=== PATIENT | female | born 1965 | race Caucasian/White ===

== ENCOUNTER 2024-04-21 23:12 | Emergency (ER) | payer OTHER, SELFPAY ==
--- NOTE | 2024-04-21 23:08 | XRR_ITS ---
PROCEDURE INFORMATION: Exam: XR Chest Exam date and time: 04/21/2024 11:13 PM Age: 59 years old Clinical indication: Pain; Chest pressure; Additional info: Chest pain TECHNIQUE: Imaging protocol: Radiologic exam of the chest. Views: 1 view. COMPARISON: No relevant prior studies available. FINDINGS: Lungs: Unremarkable. No consolidation. Pleural spaces: Unremarkable. No pleural effusion. No pneumothorax. Heart/Mediastinum: Unremarkable. No cardiomegaly. Bones/joints: Unremarkable. XR/XR chest 1V portable [id number] IMPRESSION: No acute findings.
[2024-04-21 23:09] VITALS: BP 194/95; PULSE 97; RESP 16; TEMP 36.7; O2SAT 96; BMI 18.3
--- NOTE | 2024-04-21 23:14 | ECG_ITS ---
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 Measurements Intervals [place] Rate: 99 P: 76 CO: 135 QRS: 90 QRSD: 72 T: -90 QT: 323 QTc: 416 Interpretive Statements SINUS RHYTHM POSSIBLE LEFT ATRIAL ENLARGEMENT [-0.1mV P-WAVE IN V1/V2] MODERATE T-WAVE ABNORMALITY, CONSIDER LATERAL ISCHEMIA [-0.1+ mV T-WAVE IN I/aVL/V5/V6] MODERATE T-WAVE ABNORMALITY, CONSIDER INFERIOR ISCHEMIA [-0.1+ mV T-WAVE IN II/aVF] No previous ECG available for comparison Electronically Signed On 04-22-2024 9:18:14 CDT by Prabhu Swanson M.D. [id number] f
[2024-04-21 23:30] VITALS: BP 171/86; PULSE 101; RESP 18; O2SAT 98
[2024-04-21 23:39] LABS: Basophils # 0.1 10^3/uL (0.0-0.1); Basophils % 1.1 %; Eosinophils # 0.3 10^3/uL (0.0-0.8); Eosinophils % 4.5 %; Hematocrit 33.3 % (36-47); Lymphocytes # 1.8 10^3/uL (0.8-4.8); Lymphocytes % 32.5 %; Mean Corpuscular HGB Conc 34.2 g/dL (30-55); Mean Corpuscular Hemoglobin 33.2 pg (27-33); Mean Corpuscular Volume 97.1 fl (85-98); Mean Platelet Volume 9.6 fL (7.4-10.4); Monocytes # 0.7 10^3/uL (0.2-0.9); Monocytes % 13.5 %; Neutrophils # 2.65 10^3/uL (1.8-7.7); Neutrophils % 48.2 %; Nucleated Red Blood Cells % 0 %; Platelet Count 103 10^3/cmm (157-399); Red Blood Count 3.43 10^6/uL (3.85-5.65); Red Cell Distribution Width 15.6 % (12.1-15.1)
[2024-04-22] VITALS: BP 181/90; PULSE 100; RESP 16; O2SAT 96
[2024-04-22 00:04] LABS: Troponin(5th) Baseline 19 ng/L (0-10)
[2024-04-22 00:05] LABS: Albumin Level 3.5 g/dL (3.5-5.2); Alkaline Phosphatase 148 U/L (35-105); Blood Urea Nitrogen 10 mg/dL (8-23); Calcium 8.9 mg/dL (8.5-10.5); Carbon Dioxide 21 mmol/L (22-29); Chloride 107 mmol/L (98-107); Creatinine Clr Calc Pharmacy 59.0963; Globulin 2.8 g/dL (1.3-4.6); Glomerular Filtration Rate 85.1 mL/min (90-130); Glucose 133 mg/dL (65-115); Lipase 43 U/L (13-60); Osmolality Calculated 291 mOsm/kg (285-295); Sodium 140 mmol/L (136-145); Total Bilirubin 1.3 mg/dL (0.15-1.2); Total Protein 6.3 g/dL (6.6-8.7)
[2024-04-22 00:10] LABS: Alanine Aminotransferase 67 U/L (0-33); Anion Gap 15.8 (5-19); Aspartate Amino Transferase 138 U/L (0-32); Potassium 3.8 mmol/L (3.5-5.1)
[2024-04-22 00:11] LABS: NT Pro B Type Natriuretic Pept 277 pg/mL (0-125)
[2024-04-22 00:17] LABS: INR 1.14 (0.8-1.2)
[2024-04-22 00:18] LABS: Partial Thromboplastin Time 35.9 SECONDS (23.9-36.7)
--- NOTE | 2024-04-22 00:38 | W.ED.CHESTPA ---
HPI - Chest Pain General: Chief Complaint: Chest Pain Stated Complaint: Chest Pain Time Seen by Provider: 04/21/24 23:47 History of Present Illness: Patient presents to the ER with sudden onset chest pain that radiated down her left arm while she is lying in bed. Pain is stopped by time EMS arrived there but EMS gave her 3 and 24 mg aspirin and 1 nitro. As well as 4 mg Zofran, patient is pain free and nausea free upon arrival. Patient [place] any cardiac history. Patient states she has had this pain before but it stayed in her left chest and did not go down her arm. Review of Systems General: Reports: 10 or more systems reviewed and unremarkable except in HPI and below Physical Exam Const: COMMON NORMALS: no acute distress, average body habitus, patient oriented x3, no limitations, healthy appearing, alert and well nourished HENMT: COMMON NORMALS: normocephalic, atraumatic, hearing grossly normal bilaterally, external ears normal, Normal external nose present and moist oral mucous membranes HEAD & SCALP: normocephalic and atraumatic NOSE: Normal external nose present EXTERNAL EAR: Yes external ears normal Neck/C-Spine: COMMON NORMALS: no JVD Chest: COMMONS NORMALS: normal inspection of the chest and normal palpation of entire chest wall Resp: COMMON NORMALS: normal respiratory effort, No retractions, No use of accessory muscles and clear to auscultation bilaterally AUSCULTATION: clear to auscultation bilaterally Cardio: COMMON NORMALS: no JVD, regular rate, regular rhythm, S1 normal heart sound present, S2 normal heart sound present, No gallops present (Cardio), No clicks present (Cardio), No murmurs present (Cardio) and No rub (Cardio) RATE: regular rate RHYTHM: regular rhythm HEART SOUNDS: S1 normal heart sound present and S2 normal heart sound present GI: COMMON NORMALS: Normal to inspection, nondistended, normoactive bowel sounds present, Soft to palpation, non-tender, No hepatosplenomegaly present and no masses PALPATION: Yes Soft to palpation and Yes No hepatosplenomegaly present Neuro: COMMON NORMALS: patient oriented x3 SENSORIUM/ORIENTATION: Yes alert Course Vital Signs: Vital signs: Vital Signs Temperature 98.1 F 04/21/24 23:09 Pulse Rate 96 04/22/24 01:30 Respiratory Rate 16 04/22/24 01:30 Blood Pressure 188/92 04/22/24 01:30 Pulse Oximetry 98 04/22/24 01:30 Oxygen Delivery Me thod Room Air 04/21/24 23:09 MDM - Chest Pain Medical Decision Making Presented to the ER with chest pain, lab work was obtained that revealed troponin initially of 19, 2-hour troponin of 20.94, bilirubin 1.3, AST 138 ALT 67, BUN/creatinine of 15 and 10, urinalysis was benign, white count was normal, these results was discussed with the patient patient be discharged home should follow-up with her family practice physician regarding her elevated LFTs. Differential Diagnosis Unlikely acute massive pulmonary embolism, acute respiratory failure, acute myocardial infarction, cardiac arrest or sudden cardiac Medical Records I reviewed the patient's medical records. Lab Data I reviewed the patient's lab results. 04/21/24 23:22 04/21/24 23:22 Radiology Impressions Chest X-Ray 04/21/24 23:08 IMPRESSION: No acute findings. Laboratory Results WBC 5.50 10^3/uL (3.29-11.43) 04/21/24 23:22 RBC 3.43 10^6/uL (3.85-5.65) L 04/21/24 23:22 Hgb 11.40 g/dL (11.27-16.99) 04/21/24 23:22 Hct 33.3 % (36-47) L 04/21/24 23:22 MCV 97.1 fl (85-98) 04/21/24 23:22 MCH 33.2 pg (27-33) H 04/21/24 23:22 MCHC 34.2 g/dL (30-55) 04/21/24 23:22 RDW 15.6 % (12.1-15.1) H 04/21/24 23:22 Plt Count 103 10^3/cmm (157-399) L 04/21/24 23:22 MPV 9.6 fL (7.4-10.4) 04/21/24 23:22 Neut % (Auto) 48.2 % 04/21/24 23:22 Lymph % (Auto) 32.5 % 04/21/24 23:22 Miller % (Auto) 13.5 % 04/21/24 23:22 Eos % (Auto) 4.5 % 04/21/24 23:22 Baso % (Auto) 1.1 % 04/21/24 23:22 Neut # (Auto) 2.65 10^3/uL (1.8-7.7) 04/21/24 23:22 Lymph # (Auto) 1.8 10^3/uL (0.8-4.8) 04/21/24 23:22 Miller # (Auto) 0.7 10^3/uL (0.2-0.9) 04/21/24 23:22 Eos # (Auto) 0.3 10^3/uL (0.0-0.8) 04/21/24 23:22 Baso # (Auto) 0.1 10^3/uL (0.0-0.1) 04/21/24 23:22 Nucleated RBC % (auto) 0 % 04/21/24 23:22 Nucleated RBCs # 0.0 /100WBC 04/21/24 23:22 PT 15.00 SECONDS (12.1-14.9) H 04/21/24 23:22 INR 1.14 (0.8-1.2) 04/21/24 23:22 APTT 35.9 SECONDS (23.9-36.7) 04/21/24 23:22 Sodium 140 mmol/L (136-145) 04/21/24 23:22 Potassium 3.8 mmol/L (3.5-5.1) 04/21/24 23:22 Chloride 107 mmol/L (98-107) 04/21/24 23:22 Carbon Dioxide 21 mmol/L (22-29) L 04/21/24 23:22 Anion Gap 15.8 (5-19) 04/21/24 23:22 BUN 10 mg/dL (8-23) 04/21/24 23:22 Creatinine 0.7 mg/dL (0.5-0.9) 04/21/24 23:22 GFR Calculation 85.1 mL/min (90-130) L 04/21/24 23:22 Glucose 133 mg/dL (65-115) H 04/21/24 23:22 Calculated Osmolality 291 mOsm/kg (285-295) 04/21/24 23:22 Calcium 8.9 mg/dL (8.5-10.5) 04/21/24 23:22 Total Bilirubin 1.3 mg/dL (0.15-1.2) H 04/21/24 23:22 AST 138 U/L (0-32) H 04/21/24 23:22 ALT 67 U/L (0-33) H 04/21/24 23:22 Alkaline Phosphatase 148 U/L (35-105) H 04/21/24 23:22 Troponin T Baseline 19 ng/L (0-10) H 04/21/24 23:22 Troponin T 120 Minute 20.94 ng/L (0-10) H 04/22/24 01:11 Delta Troponin T 1.94 ABS# (0-10) 04/22/24 01:11 NT-Pro-B Natriuret Pep 277 pg/mL (0-125) H 04/21/24 23:22 Total Protein 6.3 g/dL (6.6-8.7) L 04/21/24 23:22 Albumin 3.5 g/dL (3.5-5.2) 04/21/24 23:22 Globulin 2.8 g/dL (1.3-4.6) 04/21/24 23:22 Lipase 43 U/L (13-60) 04/21/24 23:22 Urine Color [place] (Yellow) A 04/22/24 00:34 Urine Appearance Clear (CLEAR) 04/22/24 00:34 Urine pH Not Reportable 04/22/24 00:34 Ur Specific [place] Not Reportable 04/22/24 00:34 Urine Protein Not Reportable 04/22/24 00:34 Urine Glucose (UA) Not Reportable 04/22/24 00:34 Urine Ketones Not Reportable 04/22/24 00:34 Urine Blood Not Reportable 04/22/24 00:34 Urine Nitrate Not Reportable 04/22/24 00:34 Urine Bilirubin Not Reportable 04/22/24 00:34 Urine Urobilinogen Not Reportable 04/22/24 00:34 Ur Leukocyte Esterase Not Reportable 04/22/24 00:34 Urine RBC 0-4 /hpf (0-2) H 04/22/24 00:34 Urine WBC None /hpf (0-5) 04/22/24 00:34 Ur Squamous Epith Cells 5-10 /hpf (0-5) H 04/22/24 00:34 Amorphous Sediment Not Reportable 04/22/24 00:34 Urine Bacteria Trace /hpf (NONE) 04/22/24 00:34 All radiology interpretation(s) finalized by discharge Discharge Plan Discharge Patient Disposition: Home Clinical Impression: Atypical chest pain, Elevated liver function tests Condition: Stable Discharge Orders: Discharge ED (Routine); Ordered 04/22/24 Ordered By: Mickey Molina Referrals: Guerita Stevenson DO [Primary Care Provider] - 1 week Patient Instructions: Chest Pain (ED) Activity Restrictions/Additional Instructions: Your evaluation in ER did not show any acute cause of your chest pain such as cardiac symptoms. However your liver enzymes were slightly elevated. Please follow-up with your family practitioner in the next 7 to 10 days for recheck of your liver enzymes and further evaluation and treatment. Thank you for choosing [facility] for your healthcare needs today. Please realize that you were seen in the emergency department and that we are providing you with an emergency medical screening exam and this may not be a complete and all exclusive of all testing and/or medical workup we may need to determine your element or severity of your illness. It is very important that you follow-up as instructed with your primary care provider or specialist for the additional evaluation and to discuss your medical treatment plan. You may return to the emergency department should you have concerns or if your condition changes or worsens in any way. Coding Level of Care Code ED Uniform Designer for [place]
[2024-04-22 00:40] VITALS: BP 199/98; PULSE 97; RESP 18; O2SAT 98
[2024-04-22 01:00] VITALS: BP 180/116; PULSE 98; RESP 20; O2SAT 98
[2024-04-22 01:01] LABS: Add Urine Culture? No; Add Urine Microscopic? YES; Bacteria Urine TRACE /hpf; RBC Urine 0-4 /hpf (0-2); Urine Color Orange (Yellow)
[2024-04-22 01:02] LABS: Urine Appearance Clear (CLEAR)
--- NOTE | 2024-04-22 01:08 | ECG_ITS ---
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 Measurements Intervals [place] Rate: 94 P: 80 MD: 142 QRS: 92 QRSD: 71 T: -82 QT: 344 QTc: 431 Interpretive Statements SINUS RHYTHM POSSIBLE LEFT ATRIAL ENLARGEMENT [-0.1mV P-WAVE IN V1/V2] BORDERLINE RIGHT AXIS DEVIATION [QRS AXIS > 90] MODERATE T-WAVE ABNORMALITY, CONSIDER INFERIOR ISCHEMIA [-0.1+ mV T-WAVE IN II/aVF] No previous ECG available for comparison Electronically Signed On 04-22-2024 1:15:15 CDT by Prabhu Swanson M.D. [id number]
[2024-04-22 01:30] VITALS: BP 188/92; PULSE 96; RESP 16; O2SAT 98
[2024-04-22 01:37] LABS: Troponin 5 2HR 20.94 ng/L (0-10); Troponin 5 2HR Delta 1.94 ABS# (0-10)
== END 2024-04-22 01:55 | disposition home or self-care (01) ==
PROVIDERS: Nurse Practitioner Family; Emergency Provider Emergency Medicine; PCP Family Medicine
DX: R07.89 Other chest pain (principal); R79.89 Other specified abnormal findings of blood chemistry
CPT/HCPCS: 71045; 80053; 81001; 83690; 83880; 84484; 85025; 85610; 85730; 93005; 99285